=== PATIENT | female | born 1960 | race Caucasian/White ===

== ENCOUNTER 2016-09-14 19:53 | Emergency (ER) | payer BC ==
--- NOTE | 2016-09-20 07:51 | ER ---
ADMIT: 09/14/2016 RM/LOC: ER [facility] MR#: [id number] [address] [id number] NGUYEN BLACKMON Bill [id number] [facility] LIZ ZUNIGA [id number] Emergency Room Report SEX: F AGE: 56 : 1960 DATE: 09/14/2016 CHIEF COMPLAINT: Left flank plain. HISTORY OF PRESENT ILLNESS: This is a pleasant 56-year-old female, who presents with 7 days of left flank pain. She was previously seen by a provider, started on Cipro for urinary tract infection. States this did not improve. She followed up with Dr. Silverio, who empirically started on Flomax and [place] for nephrolithiasis. Followup CT scan tomorrow. She states she is unable to tolerate anything p.o. at this point and states her pain is uncontrolled. Describes as sharp pain in the left flank. Nausea, vomiting, loss of appetite and some dysuria, pain with movement. EMERGENCY ROOM COURSE: GENERAL: The patient was seen and examined. She is afebrile and nontoxic. ABDOMEN: She does have some left flank plain, some CVA tenderness. RESPIRATIONS: No respiratory distress. HEART: Regular. ABDOMEN: Soft and nontender. Urine shows 33 RBC. Did get a renal colic study on her today, significant for urinary stone 0.8 x 0.4 cm located at the bladder side of the UV junction with moderate left hydroureter and hydronephrosis. The patient was given Toradol and Zofran in the department tonight for pain control as well as normal saline. IMPRESSION: Nephrolithiasis. DISPOSITION: The patient should start her Flomax and [place] as prescribed. Follow up with Urology, Dr. Kunz. Call for his appointment. Strain urine to collect the stone. Continue home medications. Return with worsening signs or symptoms. Increase fluids. Discharged in stable condition. TOREY Arellano / Lavon Wayne MD / modl JOB #: [id number] CC: Lavon Wayne MD, Attending Physician Christine Silverio MD, Family Physician
== END 2016-09-14 23:40 | disposition home or self-care (01) ==
LOC: ER 19:53
DX: N13.2 Hydronephrosis with renal and ureteral calculous obstruction (principal); Z79.899 Other long term (current) drug therapy